=== PATIENT | male | born 1960 | race Caucasian/White ===

== ENCOUNTER 2018-05-04 15:18 | Outpatient (CLI) | payer OTHER ==
--- NOTE | 2018-05-04 15:57 | RAD ---
LEFT KNEE FOUR VIEW 05/04/18 HISTORY: M25.562. COMPARISON: None. FINDINGS: There is mild swelling over the medial knee. There is small joint effusion. Mild enthesopathic change s of the quadriceps tendon. IMPRESSION: 1. No acute fracture or malalignment. 2. Mild medial compartment soft tissue edema. POS: [facility]
== END 2018-05-04 15:19 | disposition home or self-care (01) ==
LOC: SCSRAD 15:18
PROVIDERS: ATTEND Family Medicine
DX: M25.562 Pain in left knee (principal); M79.89 Other specified soft tissue disorders